=== PATIENT | male | born 1990 | race African-American/Black ===

== ENCOUNTER 2016-10-31 16:09 | Emergency (ER) | payer SELFPAY ==
[2016-02-20 11:00] VITALS: BP 136/85
[~2016-10-31] VITALS: Ht 182.9 cm; Wt 68.0 kg
[~2016-10-31 16:09] MED LIST: HYDR-971 PO
--- NOTE | 2016-10-31 16:41 | PHYS DOC ---
Past Medical History Past Medical History: No Pertinent History Past Surgical History: No Surgical History Alcohol Use: Occasionally Drug Use: None Adult General Chief Complaint Chief Complaint: HEMORRHOIDS HPI HPI Patient is a 26 year old male who presents with hemorrhoid pain for 1 week. He states that he has had problems with hemorrhoids in the past. He is usually able to push them back in and they resolve. He has been using Preparation H without relief of his pain. He has been taking a gentle laxative daily to help keep his bowel movements soft. He last had a bowel movement yesterday. He denies fever, abdominal pain, nausea, or vomiting. He admits to prolonged sitting on the toilet while playing games on his phone. He does not have a PCP. Review of Systems Review of Systems Constitutional: Denies fever or chills [] Eyes: Denies change in visual acuity, redness, or eye pain [] HENT: Denies nasal congestion or sore throat [] Respiratory: Denies cough or shortness of breath [] Cardiovascular: No additional information not addressed in HPI [] GI: Denies abdominal pain, nausea, vomiting, bloody stools or diarrhea. Reports hemorrhoid pain. : Denies dysuria or hematuria [] Musculoskeletal: Denies back pain or joint pain [] Integument: Denies rash or skin lesions [] Neurologic: Denies headache, focal weakness or sensory changes [] Endocrine: Denies polyuria or polydipsia [] Allergies Allergies Allergies Coded Allergies Type Severity Reaction Last Updated Verified No Known Drug Allergies 02/18/16 No Physical Exam Physical Exam Constitutional: Well developed, well nourished, no acute distress, non-toxic appearance. [] HENT: Normocephalic, atraumatic, bilateral external ears normal, oropharynx moist, no oral exudates, nose normal. [] Eyes: PERRLA, EOMI, conjunctiva normal, no discharge. [] Neck: Normal range of motion, no tenderness, supple, no stridor. [] Cardiovascular: Heart rate regular rhythm, no murmur [] Lungs & Thorax: Bilateral breath sounds clear to auscultation without wheezes, rales, or rhonchi. Abdomen: Bowel sounds normal, soft, no tenderness, no masses, no pulsatile masses. [] Rectal: LISSETH Pina present for exam. There is a 1cm external hemorrhoid without thrombosis. There is no fissure or perirectal abscess. Skin: Warm, dry, no erythema, no rash. [] Back: No tenderness, no CVA tenderness. [] Extremities: No tenderness, no cyanosis, no clubbing, ROM intact, no edema. [] Neurologic: Alert and oriented X 3, normal motor function, normal sensory function, no focal deficits noted. [] Psychologic: Affect normal, judgement normal, mood normal. [] Current Patient Data Vital Signs Vital Signs Date Time Temp Pulse Resp B/P Pulse Ox O2 Delivery O2 Flow Rate FiO2 10/31/16 16:22 98.3 64 18 95 Room Air 98.3 EKG EKG [] Radiology/Procedures Radiology/Procedures [] Course & Med Decision Making Course & Med Decision Making Pertinent Labs and Imaging studies reviewed. (See chart for details) [] Dragon Disclaimer Dragon Disclaimer This electronic medical record was generated, in whole or in part, using a voice recognition dictation system. Departure Departure Impression: Primary Impression: Hemorrhoids Disposition: HOME, SELF-CARE Condition: STABLE Referrals: VALERIANO WEEMS MD Patient Instructions: Hemorrhoids, [id number] Additional Instructions: You were seen for hemorrhoids. You may continue to use the [id number] Preparation H on your hemorrhoids. Please use the prescribed medication as directed. Please increase the fiber in your diet and increase the water you drink. This will help keep your stools soft and regular. You may use a gentle axla-obl-edgykur stool softener or laxative to help keep your stools soft if the fiber and water do not help. You may sit in a warm bath to help decrease the size of your hemorrhoids. Please avoid sitting on the toilet for prolonged periods or straining to have a bowel movement. Please follow up with the general surgeon listed below if your hemorrhoids do not improve or if they get worse. Return to the emergency department if you have any new or concerning symptoms. Scripts Lidocaine (Recticare)30 Gm Cream..g.30 Gm TP 6XDAY PRN RECTAL PAIN #1 Prov:CASSY LEON 10/31/16 Problem Qualifiers Primary Impression: Hemorrhoids Hemorrhoid type: unspecified Qualified Code: K64.9 - Unspecified hemorrhoids CASSY LEON Oct 31, 2016 16:41
[2016-10-31] MEDS ORDERED: LIDO30CR6 TP (16:45)
== END 2016-10-31 16:57 | disposition home or self-care (01) ==
LOC: ER 16:09
DX: K64.4 Residual hemorrhoidal skin tags (principal)
CPT/HCPCS: 99283

== ENCOUNTER 2019-03-14 00:35 | Emergency (ER) | payer SELFPAY ==
[~2019-03-14] VITALS: Ht 182.9 cm; Wt 77.1 kg
[2019-03-14 00:35] VITALS: BP 102/53
[~2019-03-14 00:35] MED LIST changes: +HYDR-3164 PO; -HYDR-971 PO; +LIDO30CR6 TP
[2019-03-14 00:50] LABS: BASO % 1 % (0-3); EOS # 0.3 x10^3/uL (0.0-0.7); EOS % 3 % (0-3); HEMATOCRIT 42.7 % (39.0-53.0); HEMOGLOBIN 14.6 g/dL (13.0-17.5); LYMPH # 4.8 x10^3/uL (1.0-4.8); LYMPH % 52 % (24-48); MEAN CORPUSCULAR HEMOGLOBIN 33 pg (25-35); MEAN CORPUSCULAR HGB CONC 34 g/dL (31-37); MEAN CORPUSCULAR VOLUME 96 fL (79-100); MONO # 0.9 x10^3/uL (0.0-1.1); MONO % 10 % (0-9); NEUT # 3.1 x10^3/uL (1.8-7.7); NEUT % 34 % (31-73); PLATELET COUNT 289 x10^3/uL (140-400); RED BLOOD COUNT 4.44 x10^6/uL (4.30-5.70); RED CELL DISTRIBUTION WIDTH 13.5 % (11.5-14.5); WHITE BLOOD COUNT 9.2 x10^3/uL (4.0-11.0)
[2019-03-14 00:55] LABS: BILIRUBIN,URINE NEGATIVE (NEG); CLARITY,URINE CLEAR; COLOR,URINE YELLOW; NITRITE,URINE NEGATIVE (NEG); PROTEIN,URINE NEGATIVE (NEG-TRACE)
[2019-03-14] MEDS ORDERED: fentaNYL PF VIAL 100 MCG/2 ML VIAL IV ONE (01:00)
[2019-03-14 01:02] LABS: PROTHROMBIN TIME PATIENT 13.2 SEC (11.7-14.0)
[2019-03-14 01:03] LABS: AMPHETAMINE/METHAMPHETAMINE NEG (NEG); BARBITURATES NEG (NEG); BENZODIAZEPINES NEG (NEG); CANNABINOIDS NEG (NEG); COCAINE NEG (NEG); METHADONE NEG (NEG); OPIATES NEG (NEG); PHENCYCLIDINE NEG (NEG)
[2019-03-14 01:08] LABS: BACTERIA,URINE 0 /HPF (0-FEW); RBC,URINE 0 /HPF (0-2); SQUAMOUS EPITHELIAL CELL,UR OCC /LPF; WBC,URINE OCC /HPF (0-4)
[2019-03-14 01:08] LABS: ALBUMIN/GLOBULIN RATIO 1.2 (1.0-1.7); CALCIUM 8.5 mg/dL (8.5-10.1); CREATININE 1.7 mg/dL (0.7-1.3); GFR 57.9; TOTAL BILIRUBIN 0.6 mg/dL (0.2-1.0); TOTAL PROTEIN 7.4 g/dL (6.4-8.2)
[2019-03-14 01:10] LABS: POTASSIUM 2.9 mmol/L (3.5-5.1)
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
[2019-03-14] MEDS ORDERED: IV NORMAL SALINE 1000ML BAG 1,000 ML IV ONE (02:00)
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
== END 2019-03-14 01:25 | disposition short-term general hospital (02) ==
LOC: ER 00:35 → EEVIPCON 00:35 → ER 01:25
DX: S31.130A Puncture wound of abdominal wall without foreign body, right upper quadrant without penetration into peritoneal cavity, initial encounter (principal); S71.132A Puncture wound without foreign body, left thigh, initial encounter; S91.331A Puncture wound without foreign body, right foot, initial encounter; F17.210 Nicotine dependence, cigarettes, uncomplicated; W34.00XA Accidental discharge from unspecified firearms or gun, initial encounter; Y93.89 Activity, other specified; Y92.89 Other specified places as the place of occurrence of the external cause; Y99.8 Other external cause status
CPT/HCPCS: 36415; 71045; 73552; 73620; 80053; 80307; 81001; 83605; 83690; 85025; 85610; 85730; 86850; 86900; 86901; 96365; 96375; 99291; G0480; J0696; J3010; J7030